=== PATIENT | male | born 2000 | race Two or more races ===

== ENCOUNTER 2024-11-11 19:01 | Emergency (ER) | payer SELFPAY ==
[~2024-11-11] VITALS: Ht 172.7 cm; Wt 92.2 kg
[2024-11-11 21:10] VITALS: BP 131/72; PULSE 78; RESP 18; TEMP 98.4; O2SAT 97
--- NOTE | 2024-11-11 22:33 | DVH ---
CLINICAL INDICATION: R/O GLASS FB TECHNIQUE: 4 radiographic views of the left hand were obtained. Comparison: None FINDINGS/IMPRESSION: There is no evidence of acute fracture or dislocation. The visualized joint space is well maintained. The alignment is anatomical. There is no radiopaque foreign body. Class today does not usually contain enough lead for to be radio graphically visible.
[2024-11-11] MEDS ORDERED: AUG875T PO (23:17)
--- NOTE | 2024-11-11 23:17 | ED.PDOC ---
HPI Comments PT PRESENTED TO ED W/CC OF LAC TO LEFT HAND AFTER ACCIDENTALLY BREAKING A GLASS. CURRENTLY BLEEDING IS CONTROLLED, PT USED SAW DUST TO CONTROL BLEED WELL SUE BANDAGE. 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 Information Source: Patient Mode of Arrival: Ambulatory Complexity: Intermediate Laceration Length (cm): 2 Past Medical History PAST MEDICAL HISTORY: Denies Surgical History: Denies all surgeries Family History Family History: Reviewed,noncontributory to illness Social History Smoker: Non-Smoker Alcohol: Denies ETOH Use Drugs: Denies Drug Use Constitutional: denies: chills, diaphoresis, fatigue, fever, malaise, sweats, weakness, others EENTM: denies: blurred vision, double vision, ear bleeding, ear discharge, ear drainage, ear pain, ear ringing, eye pain, eye redness, hearing loss, mouth pain, mouth swelling, nasal discharge, nose bleeding, nose congestion, nose pain, photophobia, tearing, throat pain, throat swelling, voice changes, others Respiratory: denies: cough, hemoptysis, orthopnea, SOB at rest, shortness of breath, SOB with excertion, stridor, wheezing, others Cardiovascular: denies: chest pain, dizzy spells, diaphoresis, Dyspnea on exertion, edema, irregular heart beat, left arm pain, lightheadedness, palpitations, PND, syncope, others Gastrointestinal: denies: abdomen distended, abdominal pain, blood streaked bowels, constipated, diarrhea, dysphagia, difficulty swallowing, hematemesis, melena, nausea, poor appetite, poor fluid intake, rectal bleeding, rectal pain, vomiting, others Genitourinary: denies: burning, dysuria, flank pain, frequency, hematuria, incontinence, penile discharge, penile sore, pain, testicle pain, testicle swelling, urgency, others Neurological: denies: dizziness, fainting, headache, left sided numbness, left sided weakness, numbness, paresthesia, pre-existing deficit, right sided numbness, right sided weakness, seizure, speech problems, tingling, tremors, weakness, others Musculoskeletal: denies: back pain, gout, joint pain, joint swelling, muscle pain, muscle stiffness, neck pain, others Integumetry: reports: laceration (LACERATION TO LEFT HAND ); denies: bruises, change in color, change in hair/nails, dryness, lesions, lumps, rash, wounds, others Hematologic/Lymphatic: denies: anemia, blood clots, easy bleeding, easy brui sing, swollen glands, others Endocrine: denies: excessive hunger, excessive sweating, excessive thirst, ex cessive urination, flushing, intolerance to cold, intolerance to heat, unexplained weight gain, unexplained weight loss, others Psychiatric: denies: anxiety, bipolar disorder, depression, hopeless, panic disorder, schizophrenia, sleepless, suicidal, others Physical Exam General Appearance: No Apparent Distress, Normal HEENT: Pharynx Normal Neck: Full Range of Motion, Non-Tender Respiratory: Lungs Clear, No Respiratory Distress, Normal Breath Sounds Cardiovascular: No Murmur, Normal Peripheral Pulses, Regular Rate/Rhythm Breast Exam: Deferred Gastrointestinal: Non Tender, Soft Genitalia: Deferred Pelvic: Deferred Rectal: Deferred Extremities: Normal capillary refill, Normal inspection, Normal range of motion, Non-tender, No pedal edema Musculoskeletal : Apperance: Normal Neurologic: Alert, 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 Was a procedure done?: No Differential diagnosis Generic Laceration: Fracture, Retained Foriegn Body, Tendon Injury, Laceration X-Ray, Labs, Meds, VS Vital Signs Date Time Temp Pulse Resp B/P (MAP) Pulse Ox O2 Delivery O2 Flow Rate FiO2 11/11/24 21:10 78 18 97 Room Air 11/11/24 21:10 98.4 78 18 131/72 (91) 97 98.4 11/11/24 19:24 98.4 97 16 145/96 (112) 100 Current Medications Medications (Trade) Dose Ordered Sig/Stella Route Start Time Stop Time Status Last Admin Acetaminophen/ Hydrocodone Bitart ([place] 5/325MG Tab) 1 tab ONCE ONCE PO 11/11/24 23:30 11/11/24 23:31 DC 11/11/24 23:27 Diphtheria/ Tetanus/Acell Pertussis (Boostrix T-Dap) 0.5 ml ONCE ONCE IM 11/11/24 23:30 11/11/24 23:31 DC 11/11/24 23:27 X-Ray, Labs, Meds, VS Comment LACERATIO REPAIRED SEE PROCEDURE NOTE. PATIENT GIVEN NORCO 5 MG WITH THE PAIN. SCRIPT PROPHYLACTIC ANTIBIOTICS. FOLLOW UP WITH HIS PCP IN 2-3 DAYS FOR WOUND RE-EVALUATION AND SUTURE REMOVAL IN 5-7 DAYS. [id number] TYLENOL OR MOTRIN NEEDED FOR THE PAIN PER LABELED DOSING INSTRUCTIONS RETURN PRECAUTIONS GIVEN PATIENT INDICATES UNDERSTANDING AGREES WITH DISCHARGE PLAN OF CARE Time of 1ST Reevaluation: 23:15 Reevaluation 1ST: Improved Patient Education/Counseling: Diagnosis, Treatment, Prognosis, Need For Follow Up Family Education/Counseling: No Family Present Departure 1 Departure Time of Disposition: 23:15 Impression: Primary Impression: Laceration of hand, complicated Qualified Codes: S61.412A - Laceration without foreign body of left hand, initial encounter Disposition: HOME / SELF CARE / HOMELESS Condition: Stable e-Prescriptions Amoxicillin & Pot Clavulanate (AUGMENTIN TABLET) 875 Mg Tb 875 MG PO BID for 7 Days, #14 TAB Prov: LEVAR DEL VALLE 11/11/24 Discharged With: Self Critical Care Note Critical Care Time?: No Stability Stability form required: No LEVAR DEL VALLE Nov 11, 2024 23:17
[2024-11-11] MEDS: TETANUS-DIPTH-ACEL PERTUSSIS 0.5ML SYR Tdap IM ONE (23:27)
[2024-11-11] MEDS: HYDROcodone-ACET 5/325MG TAB PO ONE (23:27)
== END 2024-11-11 23:38 | disposition home or self-care (01) ==
LOC: ER 19:01
DX: S61.412A Laceration without foreign body of left hand, initial encounter (principal); W25.XXXA Contact with sharp glass, initial encounter; Y93.89 Activity, other specified; Y92.89 Other specified places as the place of occurrence of the external cause; Y99.8 Other external cause status
CPT/HCPCS: 73130; 90471; 90715